=== PATIENT | male | born 1975 | race Caucasian/White ===

== ENCOUNTER 2019-02-03 20:41 | Emergency (ER) | payer OTHER ==
[~2019-02-03] VITALS: Ht 170.2 cm; Wt 66.7 kg
[2019-02-03 20:44] VITALS: Ht 170.2 cm; Wt 66.7 kg
[2019-02-03 21:32] LABS: BASOPHIL % 0.9 % (0-2); PLATELET COUNT 271 x10^3mcL (130-400)
[2019-02-03 21:33] LABS: RED CELL DISTRIBUTION WIDTH 17.3 % (11.5-14.5)
[2019-02-03 21:44] LABS: CALCIUM 8.8 mg/dL (8.5-10.1); CARBON DIOXIDE 29.6 mmol/L (21-32); CHLORIDE SERUM 103 mmol/L (98-107); CREATININE SERUM 0.9 mg/dL (0.7-1.3); GFR1 > 60 mL/min; GLUCOSE SERUM 108 mg/dL (74-106); POTASSIUM SERUM 3.8 mmol/L (3.5-5.1); SODIUM SERUM 139 mmol/L (136-145)
[2019-02-03 22:00] LABS: AMPHETAMINE QUAL UR NONE DETECTED (See below)
--- NOTE | 2019-02-04 10:35 | NUR ---
Contacted Kevin at [facility], [place] at [facility], no beds available at this time, packet faxed to keep on file for future review of placement.
[2019-02-05 04:17] VITALS: BP 114/73
== END 2019-02-05 04:17 | disposition home or self-care (01) ==
LOC: ED 20:41
PROVIDERS: Emergency Medicine
DX: R45.851 Suicidal ideations (principal); R45.850 Homicidal ideations; F22 Delusional disorders; F12.90 Cannabis use, unspecified, uncomplicated; F17.210 Nicotine dependence, cigarettes, uncomplicated; Z59.0 Homelessness; Z88.8 Allergy status to other drugs, medicaments and biological substances
CPT/HCPCS: 36415; G0480; J1630; J2060

== ENCOUNTER 2019-04-03 20:18 | Emergency (ER) | payer OTHER ==
[~2019-04-03] VITALS: Ht 175.3 cm; Wt 68.0 kg
[2019-04-03 20:27] VITALS: Ht 175.3 cm; Wt 68.0 kg
[2019-04-03 21:06] LABS: BASOPHIL % 0.9 % (0-2); PLATELET COUNT 283 x10^3mcL (130-400); RED CELL DISTRIBUTION WIDTH 15.9 % (11.5-14.5)
[2019-04-03 21:16] LABS: CALCIUM 8.9 mg/dL (8.5-10.1); CARBON DIOXIDE 27.7 mmol/L (21-32); CHLORIDE SERUM 108 mmol/L (98-107); CREATININE SERUM 0.9 mg/dL (0.7-1.3); GFR1 > 60 mL/min; GLUCOSE SERUM 95 mg/dL (74-106); POTASSIUM SERUM 4.1 mmol/L (3.5-5.1); SODIUM SERUM 142 mmol/L (136-145)
[2019-04-03 21:20] LABS: ALKALINE PHOSPHATASE 61 U/L (46-116); ALT/SGPT 21 U/L (16-63); AST/SGOT 8 U/L (15-37); BILIRUBIN TOTAL 0.13 mg/dL (0.20-1.00); TOTAL PROTEIN, SERUM 6.3 g/dL (6.4-8.2)
[2019-04-03 21:22] LABS: ALBUMIN 3.3 g/dL (3.4-5.0)
[2019-04-03 21:43] LABS: AMPHETAMINE QUAL UR NONE DETECTED (See below)
[2019-04-04 22:09] VITALS: BP 106/62
== END 2019-04-04 22:09 ==
LOC: ED 20:18
PROVIDERS: Emergency Medicine
DX: F25.9 Schizoaffective disorder, unspecified (principal); F15.10 Other stimulant abuse, uncomplicated; F17.210 Nicotine dependence, cigarettes, uncomplicated; Z59.0 Homelessness; Z88.8 Allergy status to other drugs, medicaments and biological substances
CPT/HCPCS: 36415; 99406; G0480